=== PATIENT | female | born 1980 | race Caucasian/White ===

== ENCOUNTER 2020-04-13 23:00 | Emergency (ER) | payer MEDICARE, MEDICAID ==
[~2020-04-13] VITALS: Ht 165.1 cm; Wt 59.0 kg
[~2020-04-13 23:00] MED LIST: ACET-2119 PO; ALBU8.5H8 IH; ARIP10TA15 PO; BENZ1TAB7 PO; CYCL-1 PO; DIPH-423 PO; GABA-532 PO; LURA120T PO; MONT10TA26 PO; OXYB15TA19 PO; PER10325T PO; TRAM50TA2 PO; TRAZ-251 PO; VAL5T PO; VENL150C58 PO
[2020-04-13 23:18] VITALS: BP 146/119
[2020-04-13] MEDS ORDERED: DOXYCYCLINE 100MG CAPSULE PO STA (23:38)
[2020-04-13] MEDS ORDERED: acetaminophen 325mg tablet PO ONE (23:40)
[2020-04-13] MEDS ORDERED: DOXY100C43 PO (23:42)
== END 2020-04-14 00:06 | disposition home or self-care (01) ==
LOC: ER 23:02
DX: S60.461A Insect bite (nonvenomous) of left index finger, initial encounter (principal); L03.012 Cellulitis of left finger; G43.909 Migraine, unspecified, not intractable, without status migrainosus; J45.909 Unspecified asthma, uncomplicated; M19.90 Unspecified osteoarthritis, unspecified site; G89.29 Other chronic pain; F41.9 Anxiety disorder, unspecified; F31.9 Bipolar disorder, unspecified; Z98.890 Other specified postprocedural states; Z56.0 Unemployment, unspecified; Z88.0 Allergy status to penicillin; Z88.6 Allergy status to analgesic agent; Z88.8 Allergy status to other drugs, medicaments and biological substances; Z91.010 Allergy to peanuts; Z79.2 Long term (current) use of antibiotics; Z79.899 Other long term (current) drug therapy; W57.XXXA Bitten or stung by nonvenomous insect and other nonvenomous arthropods, initial encounter; Y93.89 Activity, other specified; Y92.89 Other specified places as the place of occurrence of the external cause; Y99.8 Other external cause status
CPT/HCPCS: 99283

== ENCOUNTER 2023-06-15 17:12 | Emergency (ER) | payer BC, MEDICAID ==
[~2023-06-15] VITALS: Ht 165.1 cm; Wt 69.4 kg
[~2023-06-15 17:12] MED LIST changes: +ALBU8.5H17 IH; -ALBU8.5H8 IH; -BENZ1TAB7 PO; +BENZ1TAB93 PO; +DIAZ5TAB22 PO; +MONT-40 PO; -MONT10TA26 PO; -VAL5T PO
[2023-06-15 17:15] VITALS: BP 138/92; RESP 18; TEMP 98; O2SAT 99
== END 2023-06-15 18:05 | disposition home or self-care (01) ==
LOC: ER 17:13
DX: M25.511 Pain in right shoulder (principal); G43.909 Migraine, unspecified, not intractable, without status migrainosus; J45.909 Unspecified asthma, uncomplicated; F31.9 Bipolar disorder, unspecified; Z59.00 Homelessness unspecified; Z88.0 Allergy status to penicillin; Z88.6 Allergy status to analgesic agent; Z88.1 Allergy status to other antibiotic agents; Z79.899 Other long term (current) drug therapy; Z79.1 Long term (current) use of non-steroidal anti-inflammatories (NSAID); Z79.2 Long term (current) use of antibiotics; X50.1XXA Overexertion from prolonged static or awkward postures, initial encounter; Y93.89 Activity, other specified; Y92.89 Other specified places as the place of occurrence of the external cause; Y99.8 Other external cause status
CPT/HCPCS: 73030; 99283